=== PATIENT | female | born 1935 | race Asian ===

== ENCOUNTER 2021-11-24 07:50 | Emergency (ER) | payer OTHER ==
[~2021-11-24] VITALS: Ht 157.5 cm; Wt 68.0 kg
[~2021-11-24 07:50] MED LIST: ASPIRIN; COZAR; GABAPENTIN; HYDROCHLORIZIDE; LEVOTHYROID; LOPRESSOR; NORVASC; [UNRECOGNIZED DRUG - OTHER]
[2021-11-24 07:53] VITALS: BP_SYST 91
--- NOTE | 2021-11-24 07:53 | NUR ---
Placed in room 2 . Placed on environmental monitoring specialist, blood pressure machine and pulse oximeter. To gown for exam. Side rails up. Report given to ALIYA GARCIA
--- NOTE | 2021-11-24 07:56 | NUR ---
PT STATES RIGHT UPPER ARM DIALYSIS SHUNT STARTED LEAKING THIS AM, PT STATES SHE HAD DIALYSIS YESTERDAY AND WILL HAVE IT TOMORROW. PT STATES ONLY SLIGHT HEADACHE. NO OTHER PAIN/DISCOMFORT NOTED.
--- NOTE | 2021-11-24 08:27 | NUR ---
DR NOEL AT BEDSIDE FOR PROCEDURE.
[2021-11-24 08:47] LABS: ANION GAP 11 (5-15); CALCIUM 9.1 mg/dL (8.4-11.0); CHLORIDE 98 mmol/L (98-107); CREATININE 6.67 mg/dL (0.55-1.30); GLUCOSE 262 mg/dL (70-99); POTASSIUM 3.9 mmol/L (3.5-5.1); UREA NITROGEN, BLOOD 38 mg/dL (8-21)
[2021-11-24 08:52] LABS: BASOPHILS % (AUTO) 0.4 % (0.0-2.0); EOSINOPHILS # (AUTO) 0.2 K/uL (0.0-0.4); EOSINOPHILS % (AUTO) 2.4 % (0.0-4.0); HEMATOCRIT 33.6 % (36-48); LYMPHOCYTES # (AUTO) 2.2 K/uL (1.0-5.5); LYMPHOCYTES % (AUTO) 28.3 % (20.5-51.5); MEAN CORPUSCULAR VOLUME 102 fL (79.0-98.0); MONOCYTES # (AUTO) 0.9 K/uL (0.0-1.0); MONOCYTES % (AUTO) 11.1 % (1.7-9.3); NEUTROPHILS # (AUTO) 4.6 K/uL (1.8-7.7); NEUTROPHILS % (AUTO) 57.8 % (40.0-70.0); PLATELET COUNT (AUTO) 222 K/uL (130-430); RED CELL DISTRIBUTION WIDTH 18.3 % (9.0-15.0); WHITE BLOOD COUNT (AUTO) 7.9 K/uL (4.8-10.8)
[2021-11-24 08:54] LABS: INR 2.6 (0.8-1.2); PROTHROMBIN TIME 24.7 SECS (9.5-12.5)
[2021-11-24 08:57] LABS: ALANINE AMINOTRANSFERASE 12 U/L (12-78); ALBUMIN 2.9 g/dL (3.4-4.8); ASPARTATE AMINOTRANSFERASE 14 U/L (10-37); LIPASE 89 U/L (73-393); TOTAL BILIRUBIN 0.4 mg/dL (0.0-1.0)
[2021-11-24] MEDS ORDERED: ACETAMINOPHEN 325 MG TABLET PO ONE (09:30)
--- NOTE | 2021-11-24 09:40 | NUR ---
DR NOEL AT BEDSIDE FOR RE-EVAL. PRESSURE BANDAGE TO RIGHT UPPER ARM LOOSENED A BIT DUE TO PT STATING HER FINGERS ARE NUMB
--- NOTE | 2021-11-24 09:59 | NUR ---
CALLED FAMILY SON ESPERANZA TO COME PRN PHYSICAL THERAPIST PT. STATES HE IS ON HIS WAY
--- NOTE | 2021-11-24 10:19 | NUR ---
SON AT BEDSIDE AND DR NOEL TO SEE PT. DRESSING RE-WRAPPED, STILL WITH SLIGHT BLEEDING.
[2021-11-24 10:41] VITALS: BP_SYST 111
--- NOTE | 2021-11-24 10:42 | NUR ---
Patient given written and verbal discharge instructions and verbalizes understanding. ER MD discussed with patient the results and treatment provided. Patient in stable condition. ID arm band removed. Rx of NONE given. Patient educated on pain management and to follow up with PMD. Pain Scale 0/10. Opportunity for questions provided and answered. Medication side effect fact sheet provided. DR NOEL SPOKE WITH SON ABOUT HOLDING COUMADIN TODAY DUE TO HIGH INR LEVELS, SON ESPERANZA STATES HE UNDERSTANDS
== END 2021-11-24 10:42 | disposition home or self-care (01) ==
LOC: SED 07:50
DX: R58 Hemorrhage, not elsewhere classified (principal); Z79.899 Other long term (current) drug therapy
CPT/HCPCS: 36415; 80053; 83690; 85025; 85610-TC; 85730-TC; 86886; 86900; 86901; 99283